=== PATIENT | female | born 1975 | race Caucasian/White ===

== ENCOUNTER 2020-04-08 08:17 | Day surgery (SDC) | payer OTHER ==
[2020-04-06 08:44] VITALS: BMI 35.4
[~2020-04-08 08:17] MED LIST: LACTATED RINGERS 1,000 ML IV SCH
[2020-04-08 08:41] VITALS: RESP 16; TEMP 97.8
[2020-04-08] MEDS ORDERED: PROPOFOL 10 MG/ML 20 ML VIAL IV ONE (08:56)
--- NOTE | 2020-04-08 10:11 | P.PCN ---
Date of Procedure: 04/08/20 Description of Procedure: BRIEF HISTORY: Patient is a 44-year-old female presenting for outpatient colonoscopy for change in bowel habit/bowel function. Patient reports multiple loose bowel movements with associated urgency. Some episodes of bright red blood per rectum. No prior colonoscopy. PROCEDURE PERFORMED: Colonoscopy with polypectomy and biopsy. PREOPERATIVE DIAGNOSIS: Change in bowel habits/altered bowel function, no prior colonoscopy. ESTIMATED BLOOD LOSS: Minimal. IV sedation per Anesthesia. PROCEDURE: After informed consent was obtained, the patient, was brought into the endoscopy unit. IV sedation was administered by Anesthesia under continuous monitoring. Digital rectal examination was normal. Initially the pediatric video colonoscope was then inserted in the rectum, gradually advanced into the cecum without any difficulty. Careful examination was performed as the scope was gradually being withdrawn. Ileocecal valve and the appendiceal orifice were visualized and appeared normal. Prep was excellent. Mucosa of the cecum, ascending colon, transverse colon, descending colon, sigmoid colon, and rectum appeared normal, however the patient had a fixed sigmoid likely related to prior hysterectomy. A large 2 cm hepatic flexure polyp was removed in piecemeal fashion with hot snare polypectomy. 2 polyps removed from the rectosigmoid a 1 cm pedunculated polyp with hot snare polypectomy and a 3 mm sessile polyp with cold snare polypectomy. Random biopsies were taken of the right and left colon in the setting of altered bowel function as well as a normal-appearing terminal ileum. Retroflexion was performed in the rectum and no lesions were seen. The patient tolerated the procedure well. IMPRESSION: Large hepatic flexure polyp removed in piecemeal fashion with hot snare polypectomy. Pedunculated rectosigmoid polyp removed with hot snare polypectomy. Diminutive rectosigmoid polyp removed with cold snare polypectomy. Fixed sigmoid colon (likely related to prior hysterectomy) traversed with pediatric colonoscope. RECOMMENDATIONS: Findings of this examination were discussed with the patient . Okay to resume diet. Okay to resume medications. Follow up with GI clinic in 1-2 weeks for continued medical management as well as for results of polypectomy. Would recommend repeat colonoscopy in one year for high-risk colon polyp removed in piecemeal fashion.
[2020-04-08 10:36] VITALS: BP 160/92
[2020-04-08 10:38] VITALS: PULSE 73
[2020-04-08] MEDS ORDERED: ONDANSETRON 4 MG/2 ML VIAL ONE (10:56)
[2020-04-08] MEDS ORDERED: ONDANSETRON 4 MG/2 ML VIAL IVP ONE (10:58)
[2020-04-08] MEDS ORDERED: LACTATED RINGERS 1,000 ML IV ONE (10:58)
== END 2020-04-08 11:52 | disposition home or self-care (01) ==
LOC: ORWHC2ENDO 08:17
PROVIDERS: ATTEND Internal Medicine
DX: K63.5 Polyp of colon (principal); D12.7 Benign neoplasm of rectosigmoid junction; K63.89 Other specified diseases of intestine; F17.210 Nicotine dependence, cigarettes, uncomplicated; Z79.1 Long term (current) use of non-steroidal anti-inflammatories (NSAID); Z97.2 Presence of dental prosthetic device (complete) (partial); Z90.49 Acquired absence of other specified parts of digestive tract; Z90.710 Acquired absence of both cervix and uterus
CPT/HCPCS: 88305; 45380; 45385; J2405; J2704

== ENCOUNTER 2022-01-11 22:22 | Observation (INO) | payer OTHER ==
[2022-01-11 23:20] LABS: Basophils # (A) 0.1 k/uL (0-0.2); Basophils % (A) 1 %; Eosinophils # (A) 0.1 k/uL (0-0.7); Eosinophils % (A) 2 %; HCT 42.7 % (34.0-46.0); Lymphocytes # (A) 2.5 k/uL (1.0-4.8); Lymphocytes % (A) 29 %; MCH 28.8 pg (25.0-35.0); MCHC 32.8 g/dL (31.0-37.0); Mean Platelet Volume 9.6; Monocytes # (A) 0.6 k/uL (0-1.0); Monocytes % (A) 7 %; Neutrophils # (A) 5.2 k/uL (1.3-7.7); Neutrophils % (A) 61 %; Platelet Count 209 k/uL (150-450); RBC 4.85 m/uL (3.80-5.40); RDW 12.8 % (11.5-15.5); WBC 8.6 k/uL (3.8-10.6)
--- NOTE | 2022-01-11 23:22 | XR ---
EXAMINATION TYPE: XR chest 2V DATE OF EXAM: 01/11/2022 COMPARISON: NONE HISTORY: Dysrhythmia. TECHNIQUE: Frontal and lateral views of the chest are obtained. FINDINGS: There is no focal air space opacity, pleural effusion, or pneumothorax seen. The cardiac silhouette size is within normal limits. The osseous structures are intact. IMPRESSION: No acute cardiopulmonary process.
[2022-01-11 23:29] LABS: INR 0.9 (<1.2); Partial Thromboplastin Time 25.5 sec (22.0-30.0)
--- NOTE | 2022-01-11 23:38 | ED ---
Chest Pain HPI - General Chief Complaint: Arrhythmia/Palpitations Stated Complaint: Palpitations Time Seen by Provider: 01/11/22 22:30 Source: patient, family Mode of arrival: ambulatory Limitations: no limitations - History of Present Illness Initial Comments: This patient is a 46-year-old woman who presents with 2 weeks of chest pains. She states that for the first week they were brief and intermittent. She states her last from seconds to minutes and it felt like a squeezing from the sternal notch. She states that for the past week the pains of been more consistent. They still feel like a squeezing they can be in the substernal area anywhere from the sternal notch down to the epigastrium. She has not had associated dyspnea, diaphoresis, nausea or vomiting, lightheadedness or syncope. She has had some occasional palpitations. She did go see the clinic physician, and she had an ECG that it did show PVCs. MD Complaint: chest pain Onset/Timin -: week(s) Onset: during rest Pain Location: substernal Pain Radiation: none Severity: moderate Quality: tightness Consistency: intermittent Improves With: nothing Worsens With: nothing Treatments Prior to Arrival: none - Related Data Home Medications Medication Instructions Recorded Confirmed No Known Home Medications 01/12/22 01/12/22 Allergies Allergy/AdvReac Type Severity Reaction Status Date / Time No Known Allergies Allergy Verified 01/12/22 07:42 Review of Systems ROS Statement: Those systems with pertinent positive or pertinent negative responses have been documented in the HPI. ROS Other: All systems not noted in ROS Statement are negative. Constitutional: Denies: fever, chills Respiratory: Denies: cough, dyspnea Cardiovascular: Reports: chest pain, palpitations. Denies: orthopnea, edema, syncope Gastrointestinal: Denies: abdominal pain, nausea, vomiting, diarrhea Genitourinary: Denies: dysuria, hematuria Musculoskeletal: Denies: back pain Skin: Denies: rash Neurological: Denies: headache, weakness, numbness EKG Findings - EKG Results: EKG: interpreted by ALLY, sinus rhythm (With occasional PVC, rate 79 bpm), normal axis, normal ST/T - Blocks, Clawson, Hypertrophy, ST Abn: AV and intraventricular conduction: right bundle branch block (fixed/intermittent, complete/incomplete) (Incomplete) Past Medical History Past Medical History: GERD/Reflux Additional Past Medical History / Comment(s): migraines, IBS, constipation/loose stools, blood and mucous in stool, "pre cervical cancer" History of Any Multi-Drug Resistant Organisms: None Reported Past Surgical History: Cholecystectomy, Hysterectomy Past Anesthesia/Blood Transfusion Reactions: Previous Problems w/ Anesthesia, Motion Sickness Additional Past Anesthesia/Blood Transfusion Reaction / Comment(s): "came out scratching" Past Psychological History: No Psychological Hx Reported Smoking Status: Current every day smoker Past Alcohol Use History: None Reported Past Drug Use History: None Reported - Past Family History Mother Family Medical History: No Reported History General Exam Limitations: no limitations General appearance: alert, in no apparent distress Head exam: Present: atraumatic, normocephalic Eye exam: Present: normal appearance. Absent: scleral icterus, conjunctival injection ENT exam: Present: normal oropharynx Neck exam: Present: normal inspection Respiratory exam: Present: normal lung sounds bilaterally. Absent: respiratory distress, wheezes, rales, rhonchi, stridor Cardiovascular Exam: Present: regular rate, normal rhythm, normal heart sounds. Absent: systolic murmur, diastolic murmur, rubs, gallop GI/Abdominal exam: Present: soft. Absent: distended, tenderness, guarding, rebound, rigid, mass Extremities exam: Present: normal inspection, normal capillary refill. Absent: pedal edema, calf tenderness Back exam: Present: normal inspection. Absent: CVA tenderness (R), CVA tenderness (L) Neurological exam: Present: alert Skin exam: Present: warm, dry, intact, normal color. Absent: rash Course Vital Signs 01/11/22 01/12/22 22:24 02:09 Temperature 98.9 F Pulse Rate 87 75 Respiratory 22 16 Rate Blood Pressure 147/95 104/72 O2 Sat by Pulse 98 98 Oximetry Disposition Clinical Impression: Palpitations, Chest pain Disposition: ADMITTED IP TO THIS HOSP Condition: Fair Is patient prescribed a controlled substance at d/c from ED?: No
[2022-01-11 23:57] LABS: Amphetamine Screen,Urine Not Detected (NotDetected); Barbiturate Screen,Urine Not Detected (NotDetected); Benzodiazepines Screen,Urine Not Detected (NotDetected); Cocaine Screen,Urine Not Detected (NotDetected); Methadone Screen, Urine Not Detected (NotDetected); Opiate Screen,Urine Not Detected (NotDetected); Oxycodone Screen, Urine Not Detected (NotDetected); Phencyclidine Screen,Urine Not Detected (NotDetected); Tricyclic Antidepressant,Urine Not Detected (NotDetected); Urn Cannabinoid Scrn Not Detected (NotDetected)
[2022-01-12 00:02] LABS: Glucose,Whole Blood 107 mg/dL (70-110)
[2022-01-12 00:23] LABS: ALT 18 U/L (4-34); AST 23 U/L (14-36); African American GFR (CKD) >90 (>60 ml/min/1.73 sqM); Alkaline Phosphatase 70 U/L (38-126); Anion Gap 7 mmol/L; Blood Urea Nitrogen 12 mg/dL (7-17); Carbon Dioxide 24 mmol/L (22-30); Chloride 104 mmol/L (98-107); Glucose 100 mg/dL (74-99); Magnesium 2.2 mg/dL (1.6-2.3); Non-African American GFR(CKD) 82 (>60 ml/min/1.73 sqM); Potassium 3.9 mmol/L (3.5-5.1); Sodium 135 mmol/L (137-145); Total Bilirubin 0.3 mg/dL (0.2-1.3); Total Protein 6.6 g/dL (6.3-8.2)
[2022-01-12] MEDS ORDERED: NITROGLYCERIN SL TABS 0.4 MG TAB SUBLINGUAL PRN (01:37)
[2022-01-12 04:07] VITALS: PULSE 59
[2022-01-12] MEDS ORDERED: SODIUM CHLORIDE 0.9% 1,000 ML IV SCH (05:45)
--- NOTE | 2022-01-12 05:49 | P.HPIM ---
History of Present Illness H&P Date: 01/12/22 Chief Complaint: Chest fluttering 46-year-old female with no significant past medical history Patient works at [employer], she is active walks around 10 miles every day has no limitations to her physical activity. She comes in today for a persistent episode of left-sided chest fluttering. She's been getting these episodes more frequently recently over the past few days each episodes will last for few minutes comes randomly throughout the day not related to any activity or food. She feels that her left side of the chest is fluttering sometimes squeezing which makes her aware of her breathing but denies any dizziness or lightheadedness denies any near-syncope denies any profuse sweating denies any limitation of activity during the episodes denies a ny precipitating factors or alleviating factors she would just wait for the episodes subside. She reports drinking one 20 ounce of home bruit coffee daily no other caffeine intake she would rarely drinking Mountain Dew. Or sometimes Tea later during the day. She mainly drinks. Water. Denies using any weight loss regimens, herbal products, natural products. She is not on any prescription medications. She denies any illicit drugs, or heavy alcohol consumption. She quit tobacco smoking July 09 however she is currently sleeping She denies any cardiac history or cardiac workup in the past. Otherwise he denies any fevers or chills denies any upper respiratory infection symptoms denies nausea vomiting abdominal pain changes in her bowel or urinary habits denies any focal neuro deficits In the ED workup showed vital signs within normal limits, blood work overall unremarkable troponins negative 2 EKG showed PVCs, no acute specific ST changes Patient wears an apple watch and able to record EKGs over the past couple days when she is having those prolonged episodes of chest fluttering she was able to capture EKGs on her phone when she showed me looks like she is getting very fr equent PVCs in some cases and a bigeminy pattern followed by short pauses before she converts to sinus rhythm again. Review of Systems Pertinent positives as noted in HPI. All other systems were reviewed and are negative Past Medical History Past Medical History: GERD/Reflux Additional Past Medical History / Comment(s): migraines, IBS, constipation/loose stools, blood and mucous in stool, "pre cervical cancer" History of Any Multi-Drug Resistant Organisms: None Reported Past Surgical History: Cholecystectomy, Hysterectomy Past Anesthesia/Blood Transfusion Reactions: Previous Problems w/ Anesthesia, Motion Sickness Additional Past Anesthesia/Blood Transfusion Reaction / Comment(s): "came out s cratching" Past Psychological History: No Psychological Hx Reported Smoking Status: Current every day smoker Past Alcohol Use History: None Reported Additional Past Alcohol Use History / Comment(s): 1 PPD for 30 yrs Past Drug Use History: None Reported - Past Family History Mother Family Medical History: No Reported History Medications and Allergies Home Medications Medication Instructions Recorded Confirmed Type Cannabidiol (Cbd) [Epidiolex] 1 applicate IH DIRECTED 04/06/20 04/08/20 History Ibuprofen 800 mg PO Q8H PRN 04/06/20 04/08/20 History Allergies Allergy/AdvReac Type Severity Reaction Status Date / Time No Known Allergies Allergy Verified 01/11/22 22:28 Physical Exam Vitals: Vital Signs Temp Pulse Resp BP Pulse Ox 01/12/22 02:09 75 16 104/72 98 01/11/22 22:24 98.9 F 87 22 147/95 98 Intake and Output 01/11/22 01/11/22 01/12/22 14:59 22:59 06:59 Other: Voiding Method Toilet Weight 97.069 kg 97.069 kg Constitutional: No acute distress, conversant, pleasant Eyes: Anicteric sclerae, moist conjunctiva, Pupils equal round reactive to light ENMT: NC/AT Oropharynx clear, no erythema, or exudates Neck: Supple, FROM, no masses, or JVD No carotid bruits No thyromegaly Lungs: Clear to auscultation Clear to percussion Normal respiratory effort, no accessory muscle use Cardiovascular: Heart regular in rate and rhythm, No murmurs, gallops, or rubs No peripheral edema Abdominal: Soft Nontender, no guarding, rebound or rigidity Abdomen moving with respiration Normoactive bowel sounds No hepatomegaly, No splenomegaly No palpable mass No abdominal wall hernia noted Skin: Normal temperature, tone, texture, turgor No induration No subcutaneous nodules No rash, lesions No ulcers Extremities: No digital cyanosis No clubbing Pedal pulses intact and symmetrical Radial pulses intact and symmetrical No calf tenderness Psychiatric: Alert and oriented to person, place and time Appropriate affect fair judgement Neuro Muscles Strength 5/5 in all 4 extremities Sensation to light touch grossly present throughout Cranial nerves II-XII grossly intact No focal sensory deficits Lymphatics: no palpable cervical or supraclavicular , or inguinal lymph nodes Results CBC & Chem 7: 01/11/22 23:00 01/11/22 23:47 Labs: Abnormal Lab Results - Last 24 Hours (Table) 01/11/22 Range/Units 23:47 Sodium 135 L (137-145) mmol/L Glucose 100 H (74-99) mg/dL Assessment and Plan Assessment: Chest fluttering, frequent PVCs on home EKG recordings at times in bigeminy pattern Rule out arrhythmias Troponins negative 2 Cardiology consultative Continue with cardiac monitoring Monitor vital signs Aspirin full dose Check lipid profile Check A1c Thyroid function unremarkable Check echocardiogram DVT prophylaxis heparin subcu 3 times a day Full code
[2022-01-12 07:48] VITALS: BP 94/55; RESP 18; TEMP 97.8
[2022-01-12] MEDS ORDERED: HEPARIN SODIUM,PORCINE/PF 5,000 UNIT/0.5 ML SYRINGE SQ SCH (08:00)
--- NOTE | 2022-01-12 10:02 | CA ---
Transthoracic Echo Report Name: Natalia Resendez Age: 46 Gender: F : 1975 Exam Date: 01/12/2022 07:58 Exam Location: [facility] Ht (in): 63 Wt (lb): 214 Ordering Physician: Carlie Johnson MD Attending/Referring Phys: [id number], Alex Food Mixer Repairer Yue Horton RDCS Procedure CPT: Indications: arrhythmia frequent pvcs Cardiac Hx: Technical Quality: Fair Contrast 1: Total Dose (mL): Contrast 2: Total Dose (mL): MEASUREMENTS (Male / Female) Normal Values 2D ECHO LV Diastolic Diameter PLAX 4.4 cm 4.2 - 5.9 / 3.9 - 5.3 cm LV Systolic Diameter PLAX 2.4 cm IVS Diastolic Thickness 1.2 cm 0.6 - 1.0 / 0.6 - 0.9 cm LVPW Diastolic Thickness 1.0 cm 0.6 - 1.0 / 0.6 - 0.9 cm LV Relative Wall Thickness 0.5 RV Internal Dim ED PLAX 3.0 cm LA Volume 40.4 cm??? 18 - 58 / 22 - 52 cm??? M-MODE Aortic Root Diameter MM 2.4 cm LA Systolic Diameter MM 4.0 cm LA Ao Ratio MM 1.7 AV Cusp Separation MM 2.0 cm DOPPLER AV Peak Velocity 143.3 cm/s AV Peak Gradient 8.2 mmHg LVOT Peak Velocity 100.0 cm/s LVOT Peak Gradient 4.0 mmHg MV Area PHT 3.8 cm??? Mitral E Point Velocity 125.8 cm/s Mitral A Point Velocity 51.4 cm/s Mitral E to A Ratio 2.4 MV Deceleration Time 198.2 ms MV E' Velocity 14.9 cm/s Mitral E to MV E' Ratio 8.4 TR Peak Velocity 135.3 cm/s TR Peak Gradient 7.3 mmHg Right Ventricular Systolic Press 12.1 mmHg FINDINGS Left Ventricle Mildly increased septal wall thickness. Normal left ventricular systolic function with no obvious regional wall motion abnormalities. Normal left ventricular diastolic filling pattern. Left ventricular ejection fraction is estimated at 55-60 %. Right Ventricle Normal right ventricular size. Right ventricular systolic pressure within normal limits. Right Atrium Normal right atrial size. Left Atrium Normal left atrial size. No evidence for an atrial septal defect. Mitral Valve Structurally normal mitral valve. No mitral stenosis, regurgitation or prolapse. Aortic Valve Trileaflet aortic valve. No aortic valve stenosis or regurgitation. Tricuspid Valve Structurally normal tricuspid valve. Mild tricuspid regurgitation. Pulmonic Valve Structurally normal pulmonic valve. Trace pulmonic regurgitation. Pericardium No pericardial effusion. Aorta Normal size aortic root and proximal ascending aorta. CONCLUSIONS Normal LV size and systolic function. Borderline concentric LVH. No significant abnormality in the Doppler exam. No pericardial effusion Previewed by: Dr. Iris Marroquin MD (Electronically Signed) Final Date: 12 January 2022 10:01
--- NOTE | 2022-01-12 10:08 | CA ---
Exercise Stress Test Report Name: Natalia Resendez Exam Date: 01/12/2022 09:10 Exam Location: [facility] Ht (in): 63 Wt (lb): 214 BSA: 1.99 Ordering Phys: Nanda Hanson Referring Phys: VIC, Technologist: Dmitry Betancourt Age: 46 Gender: F : 1975 Procedure CPT: Indications: CP ICD-10 Codes: Patient History: Chest Pain Shortness of breath and palpitations Medications: Meds past 24 hrs: Pretest Chest Pain: STRESS TEST Samuel Protocol Exercise Duration (min:sec): 09:[address] Depressions (mm): Angina Score: Mathew Score: Resting HR (bpm): 59 Peak HR (bpm): 152 Resting BP (mmHg): 129 / 89 Peak BP (mmHg): 180 / 91 MPHR: 176 Target HR: 150 % MPHR: 86 METS: 11.1 Total Dose: Peak Dose: Atropine: Double Product: 95212 BP Response: Stress Termination: Reached target heart rate Stress Symptoms: No chest pain or symptoms Stress Summary: ECG ANALYSIS Resting ECG: Stress ECG: CONCLUSIONS Patient walked on a standard Samuel protocol for 9 minutes 35 seconds and achieved a maximal heart rate of 152 bpm which is more than 85% of predicted maximal. She did not have any angina or arrhythmia. She did not have any PVCs. EKG did not reveal any ST segment changes to indicate ischemia. This is a negative stress test by EKG criteria with fairly decent exercise capacity without any evidence of angina or arrhythmia. Dr. Iris Marroquin MD (Electronically Signed) Final Date: 12 January 2022 10:07
--- NOTE | 2022-01-12 10:33 | P.CRDCN ---
History of Present Illness History of present illness: HISTORY OF PRESENT ILLNESS: This is a 46 -year-old female with a past medical history significant for nicotine dependence. Patient does not follow with a printed circuit boards inspector. We have been asked to see the patient in consultation for chest pain. Patient examined at the bedside. Patient states the past few days she has had intermittent pain in the middle of her chest. She reports Sunday night she felt short of breath for a couple of minutes and pressure that she had palpitations. The patient currently denies any chest pain or pressure. The patient states she used to smoke cigarettes and she currently rates. She denies any alcohol use or marijuana use. She denies any previous cardiac workup in the past. * EKG reveals sinus mechanism with no signs of acute ischemia * Chest xray negative for acute process * Laboratory data: WBC 8.6. Hemoglobin 14.0. Platelet count 209. D-dimer 0.23. Sodium 135. Potassium 3.9. BUN 12. Creatinine 0.87. Troponin negative 3. TSH 4.480. * Current home cardiac medications include none REVIEW OF SYSTEMS: At the time of my exam: CONSTITUTIONAL: Denies fever or chills. HEENT: Denies blurred vision, vision changes, or eye pain. Denies hemoptysis CARDIOVASCULAR: Denies chest pain. Denies orthopnea. Denies PND. Denies palpitations RESPIRATORY: Denies shortness of breath. GASTROINTESTINAL: Denies abdominal pain. Denies nausea or vomiting. HEMATOLOGIC: Denies bleeding disorders. GENITOURINARY: Denies any blood in urine. SKIN: Denies pruitis. Denies rash. PHYSICAL EXAM: VITAL SIGNS: Reviewed. GENERAL: Well-developed in no acute distress. HEENT: Head is normocephalic. Pupils are equal, round. Sclerae anicteric. Mucous membranes of the mouth are moist. Neck supple. No JVD or thyromegaly LUNGS: Respirations even and unlabored. Lungs essentially clear to auscultation bilaterally. HEART: Regular rate and rhythm. S1 and S2 heard. ABDOMEN: Soft. Nondistended. Nontender. EXTREMITIES: Normal range of motion. No clubbing or cyanosis. Peripheral pulses intact. No lower extremity edema NEUROLOGIC: Awake and alert. Oriented x 3. ASSESSMENT: Chest pain, atypical, troponin negative 3 Palpitations Nicotine dependence PLAN: An acute coronary event has been ruled out Obtain 2-D echo to assess [place] structure and function Patient will undergo stress testing today to assess for ischemia If stress test is negative, will have patient wear 24-hour Holter monitor Further recommendations pending patient's course Nurse practitioner note has been reviewed by physician. Signing provider agrees with the documented findings, assessment, and plan of care. Past Medical History Past Medical History: GERD/Reflux Additional Past Medical History / Comment(s): migraines, IBS, constipation/loose stools, blood and mucous in stool, "pre cervical cancer" History of Any Multi-Drug Resistant Organisms: None Reported Past Surgical History: Cholecystectomy, Hysterectomy Past Anesthesia/Blood Transfusion Reactions: Previous Problems w/ Anesthesia, Motion Sickness Additional Past Anesthesia/Blood Transfusion Reaction / Comment(s): "came out scratching" Past Psychological History: No Psychological Hx Reported Smoking Status: Current every day smoker Past Alcohol Use History: None Reported Additional Past Alcohol Use History / Comment(s): 1 PPD for 30 yrs Past Drug Use History: None Reported - Past Family History Mother Family Medical History: No Reported History Medications and Allergies Home Medications Medication Instructions Recorded Confirmed Type No Known Home Medications 01/12/22 01/12/22 History Allergies Allergy/AdvReac Type Severity Reaction Status Date / Time No Known Allergies Allergy Verified 01/12/22 07:42 Physical Exam Vitals: Vital Signs Temp Pulse Pulse Resp BP BP BP 01/12/22 07:38 01/12/22 07:25 97.8 F 59 L 18 94/55 01/12/22 02:42 98.1 F 59 L 17 118/79 01/12/22 02:09 75 16 104/72 01/11/22 22:24 98.9 F 87 22 147/95 Pulse Ox 01/12/22 07:38 98 01/12/22 07:25 98 01/12/22 02:42 98 01/12/22 02:09 98 01/11/22 22:24 98 Intake and Output 01/11/22 01/12/22 01/12/22 22:59 06:59 14:59 Other: Voiding Method Toilet # Voids 1 Weight 97.069 kg 97.069 kg Results 01/11/22 23:00 01/11/22 23:47 Cardiac Enzymes 01/11/22 01/11/22 01/12/22 Range/Units 23:00 23:47 02:17 AST 23 (14-36) U/L Troponin I <0.012 <0.012 (0.000-0.034) ng/mL 01/12/22 Range/Units 05:37 AST (14-36) U/L Troponin I <0.012 (0.000-0.034) ng/mL Coagulation 01/11/22 Range/Units 23:00 PT 10.0 (9.0-12.0) sec APTT 25.5 (22.0-30.0) sec CBC 01/11/22 Range/Units 23:00 WBC 8.6 (3.8-10.6) k/uL RBC 4.85 (3.80-5.40) m/uL Hgb 14.0 (11.4-16.0) gm/dL Hct 42.7 (34.0-46.0) % Plt Count 209 (150-450) k/uL Comprehensive Metabolic Panel 01/11/22 Range/Units 23:47 Sodium 135 L (137-145) mmol/L Potassium 3.9 (3.5-5.1) mmol/L Chloride 104 (98-107) mmol/L Carbon Dioxide 24 (22-30) mmol/L BUN 12 (7-17) mg/dL Creatinine 0.87 (0.52-1.04) mg/dL Glucose 100 H (74-99) mg/dL Calcium 9.0 (8.4-10.2) mg/dL AST 23 (14-36) U/L ALT 18 (4-34) U/L Alkaline Phosphatase 70 (38-126) U/L Total Protein 6.6 (6.3-8.2) g/dL Albumin 4.0 (3.5-5.0) g/dL Current Medications Generic Name Dose Route Start Last Admin Trade Name Freq PRN Reason Stop Dose Admin Heparin Sodium (Porcine) 5,000 unit 01/12/22 08:00 Heparin Sodium,Porcine/Pf 5,000 Unit/0.5 Ml Syringe SQ Q8HR REX Sodium Chloride 1,000 mls @ 75 mls/hr 01/12/22 05:45 01/12/22 06:11 Saline 0.9% IV 75 mls/hr .[id number] REX Administration Nitroglycerin 0.4 mg 01/12/22 01:37 Nitroglycerin Sl Tabs 0.4 Mg Tab SUBLINGUAL Q5M PRN Chest Pain Intake and Output 01/11/22 01/12/22 01/12/22 22:59 06:59 14:59 Other: Voiding Method Toilet # Voids 1 Weight 97.069 kg 97.069 kg 01/11/22 23:00 01/11/22 23:47
--- NOTE | 2022-01-12 12:53 | P.DS ---
Providers Date of admission: 01/12/22 01:38 Expected date of discharge: 01/12/22 Attending physician: Carlie Johnson MD Primary care physician: Babak Trejo [facility] Course: Discharge Diagnosis: Chest pain/palpitations, acute coronary event ruled out. Patient being discharged home with Holter monitor and to follow up outpatient with cardiology in 1 week. Nicotine dependence, recommend smoking cessation Hospital Course: Patient is a very pleasant 46-year-old female with a past medical history of IBS and GERD. She presented to the emergency department with a chief complaint of palpitations. Patient reports over the past few days she has been having intermittent episodes of palpitations that have came in gone without any noted triggers. Patient denies having any increase in caffeine (reports drinking only one cup of coffee in the morning), changes in her diet, or beginning any vitamin supplements. She underwent full evaluation. An EKG was completed revealing normal sinus rhythm at 79 bpm with occasional PVCs. CBC, coags, and CMP were unremarkable. D-dimer was negative at 0.23 and initial troponin negative at less than 0.012. Chest x-ray negative for acute cardiopulmonary process. Patient was admitted under our services with consultation to cardiology. Troponins trended and were all negative at less than 0.0123 draws. Thyroid function unremarkable with TSH of 4.480. Urine drug screen negative. Echocardiogram revealing normal EF of 55-60% with borderline concentric LVH. Patient underwent stress test which was reported to be a negative stress test by EKG criteria with fairly decent exercise capacity without any evidence of angina or arrhythmias. Cardiology recommending Holter monitor and outpatient follow-up in their office. Patient is medically stable at this time. She is no longer having noted PVCs on telemetry monitoring. She denies having any chest pain or palpitations at this time. Holter monitor being placed and patient to follow up outpatient with cardiology in 1 week and PCP in 1-2 days. Patient seen and examined at bedside. Vital signs reviewed and stable. General: Nontoxic, no distress and appears stated age. Derm: Skin warm and dry, normal coloration for ethnicity. Head: Atraumatic, normocephalic and symmetric. Eyes: EOMs intact, no lid lag, and anicteric sclera Mouth: no lip lesions, mucus membranes moist Cardiovascular: regular rate and rhythm with normal S1S2, no murmur, positive posterior tibial pulses bilaterally, and cap refill < 2 seconds. Lungs: Respirations even, regular, and unlabored on room air. Lungs CTA bilaterally, no rhonchi, no rales, no wheezing, and no accessory muscle usage. Abdominal: soft, nontender to palpation, no guarding, no appreciable organomegaly Ext: ROM intact. No gross muscle atrophy, no edema, no contractures Neuro: Speech clear, face symmetrical and CN II-XII grossly intact with no noted focal neuro deficits Psych: Alert and oriented to person, place, time, and situation. Appropriate and pleasant affect. A total of 32 minutes of time were spent preparing this complex discharge summary. Pt was discharged on 01/12/22 at 12:52 AM Patient Condition at Discharge: Stable Plan - Discharge Summary New Discharge Prescriptions: No Action No Known Home Medications Discharge Medication List No Known Home Medications 01/12/22 [History] Follow up Appointment(s)/Referral(s): Iris Marroquin MD [STAFF PHYSICIAN] - 1 Week (Office will call with appointment time and date.) Babak Trejo MD [Primary Care Provider] - 1-2 days Patient Instructions/Handouts: Chest Pain (DC) Activity/Diet/Wound Care/Special Instructions: Activity: As tolerated. Take breaks as needed. Diet: Heart healthy and carb consistent diet. Avoid salts, or foods with hidden salts such as canned or boxed foods and frozen dinners. Extra salt makes your heart work harder and traps the fluid in your body for longer. Special Instructions: Take all of your medications as directed and remember to keep all of your doctor's appointments and follow-up as needed. Thank you for allowing us to participate in your care, it was truly a pleasure having you for our patient!!! Discharge Disposition: HOME SELF-CARE
[2022-01-13] MEDS ORDERED: ASPIRIN 325 MG TAB PO SCH (09:00)
--- NOTE | 2022-01-18 09:49 | P.HOLTER ---
48 hour Holter monitor shows sinus mechanism with heart rates ranging from 50- 126 beats a minute, average 77 beats a minute Occasional PVCs and PACs No sustained or nonsustained arrhythmias
== END 2022-01-12 13:57 | disposition home or self-care (01) ==
LOC: EC 22:22 → 6NMEDSUR 01-12 01:38
PROVIDERS: ADMIT Internal Medicine; ATTEND Internal Medicine
DX: R07.89 Other chest pain (principal); I49.3 Ventricular premature depolarization; I07.1 Rheumatic tricuspid insufficiency; I45.10 Unspecified right bundle-branch block; K21.9 Gastro-esophageal reflux disease without esophagitis; K58.2 Mixed irritable bowel syndrome; G43.909 Migraine, unspecified, not intractable, without status migrainosus; F17.200 Nicotine dependence, unspecified, uncomplicated; Z90.49 Acquired absence of other specified parts of digestive tract; Z90.710 Acquired absence of both cervix and uterus; Z87.42 Personal history of other diseases of the female genital tract; Z71.6 Tobacco abuse counseling
CPT/HCPCS: 99285; 36415; 93005; 93017; 93225; 93226; 93306; 85379; 80053; 83735; 84443; 84484 ×2; 85025; 85610; 85730; 80306; 83036; 71046; G0378